=== PATIENT | male | born 1940 | race Caucasian/White ===

== ENCOUNTER 2018-07-03 13:07 | Day surgery (SDC) | payer MEDICARE, OTHER ==
[~2018-07-03] VITALS: Ht 162.6 cm; Wt 63.5 kg
[~2018-07-03 13:07] MED LIST: ASPI-630 PO; LISI10TA2 PO; METF10007 PO
[2018-07-03] MEDS ORDERED: RED600TA PO (13:51)
[2018-07-03] MEDS ORDERED: UBID100C26 PO (13:51)
[2018-07-03] MEDS ORDERED: IV RINGERS,LACTATED 1000ML 1,000 ML IV SCH ×2 (14:00→18:03)
[2018-07-03] MEDS ORDERED: fentaNYL PF VIAL 100 MCG/2 ML VIAL ONE ×2 (14:44→16:51)
[2018-07-03] MEDS ORDERED: SEVOFLURANE > 120 MINUTES. IH ONE (14:44)
[2018-07-03] MEDS ORDERED: PROPOFOL 20 ML IV ONE (14:45)
[2018-07-03] MEDS ORDERED: GLYCOPYRROLATE 1 MG/5 ML VIAL. ONE (14:45)
[2018-07-03] MEDS ORDERED: ROCURONIUM 50 MG/5 ML VIAL. ONE (14:45)
[2018-07-03] MEDS ORDERED: DEXAMETHASONE SOD PHOS 20 MG/5 ML VIAL. ONE (14:45)
[2018-07-03] MEDS ORDERED: ONDANSETRON PF 4 MG/2 ML VIAL. ONE (14:45)
[2018-07-03] MEDS ORDERED: LIDOCAINE 2% PF Vial for OR 5 ML VIAL. ONE (14:45)
[2018-07-03] MEDS ORDERED: NEOSTIGMINE METHYLSULFATE 5 MG/5 ML SYRINGE. ONE (14:45)
--- NOTE | 2018-07-03 17:29 | PDOC4 ---
OPERATIVE NOTE Date: Date: Jul 03, 2018 Pre-Op Diagnosis: BPH with obstruction. bladder stones Post-Op Diagnosis: same Procedure Performed: cystoscopy, greenlight laser of prostate. removal of bladder stones Surgeon: Solomon Lomax MD Anesthesia Type: general Blood Loss: 0 Specimans Obtained: bladder stones Findings: bladder stones. lateral lobe prostate obstruction Complications: none Operative Note: see dictation SOLOMON LOMAX MD Jul 03, 2018 17:29
--- NOTE | 2018-07-03 17:33 | DISCH ---
DISCHARGE INSTRUCTIONS Condition on Discharge Condition on Discharge: Stable Activity After Discharge Activity Instructions for Disc: Avoid exertion Lifting Instructions after Dis: No heavy lifting Exercise Instruction after Dis: Walk 15 min, 3 x per day Driving Instructions after Dis: Do not drive today Diet after Discharge Diet after Discharge: Regular Contacting the after DC Call your doctor for: Concerns you may have Follow-Up Follow up with: Dr. Lomax 07/07/18 for catheter removal SOLOMON LOMAX MD Jul 03, 2018 17:33
[2018-07-03] MEDS ORDERED: HYDR-3164 PO (17:36)
--- NOTE | 2018-07-03 18:04 | OP ---
DATE OF SURGERY: 07/03/2018 SURGEON: Solomon Lomax MD SUPER[employer]ENDENT [employer]OM[employer]IVE: None. PREOPERATIVE DIAGNOSES: 1. Benign prostatic hypertrophy with obstruction. 2. Bladder stones. POSTOPERATIVE DIAGNOSES: 1. Benign prostatic hypertrophy with obstruction. 2. Bladder stones. PROCEDURES PERFORMED: 1. Cystoscopy with GreenLight laser vaporization of the prostate. 2. Cystoscopy with extraction of bladder stones. ANESTHESIA TYPE: General. INDICATIONS: This is a 78-year-old male with bothersome prostate enlargement. He was found to have a large prostate and bladder stones on cystoscopy in the office. After discussion of risks, benefits and alternatives, he agreed to the above procedure. Informed consent was obtained. DESCRIPTION OF PROCEDURE: The patient was taken to the operating room where general anesthesia was induced. He was placed in dorsal lithotomy position and sterilely prepped and draped. A timeout was performed. A rigid cystoscope was advanced through the urethra and into the bladder. The urethra appeared normal other than prostatic obstruction from lateral lobe enlargement. Within the bladder, there were 4 small stones, which were grasped and removed intact and sent as a specimen. Both ureteral orifices were identified. The prostate was then vaporized, starting at the bladder neck and proceeding back towards the apex of the prostate. A total of 325,000 joules of energy was used. Care was taken to not injure the ureteral orifices or transmit energy distal to the veru. Hemostasis was excellent throughout the procedure. An 18-[place] Allen catheter was placed and then irrigated with return of clear fluid. A catheter bag was attached. The patient was then awakened and taken to the recovery room in stable condition. BLOOD LOSS: None. COMPLICATIONS: None. SPECIMEN: Bladder stones. SOLOMON LOMAX MD DR: NIKOLAY/cathi JOB#: [id number] / [id number]
[2018-07-03] MEDS ORDERED: MORPHINE SULFATE 2 MG/ML VIAL. IV PRN (18:15)
[2018-07-03] MEDS ORDERED: HYDROmorphone 2 MG/ML VIAL IV PRN (18:15)
[2018-07-03] MEDS ORDERED: fentaNYL PF VIAL 100 MCG/2 ML VIAL IV PRN ×2 (18:15)
[2018-07-03] MEDS ORDERED: LIDOCAINE 1% PF 2 ML VIAL. ID PRN (18:15)
[2018-07-03] MEDS ORDERED: PROCHLORPERAZINE 10 MG/2 ML VIAL. IV PRN (18:15)
[2018-07-03] MEDS ORDERED: ONDANSETRON PF 4 MG/2 ML VIAL. IV PRN (18:15)
[2018-07-03 18:21] VITALS: BP 163/88
[2018-07-03] MEDS ORDERED: INSULIN LISPRO 100 UNIT/ML 3ML VIAL. SQ ONE (19:15)
--- NOTE | 2018-08-06 09:45 | OP ---
DATE OF SURGERY: 07/03/2018 ADDENDUM The 4 bladder stones removed were all approximately 8 mm in size. SOLOMON LOMAX MD DR: NIKOLAY/cathi JOB#: [id number] / [id number]
== END 2018-07-03 19:12 | disposition home or self-care (01) ==
LOC: SURG 13:07
PROVIDERS: ATTEND Urology
DX: N40.1 Benign prostatic hyperplasia with lower urinary tract symptoms (principal); N13.8 Other obstructive and reflux uropathy; N21.0 Calculus in bladder; I10 Essential (primary) hypertension; E11.9 Type 2 diabetes mellitus without complications; Z82.49 Family history of ischemic heart disease and other diseases of the circulatory system; Z84.1 Family history of disorders of kidney and ureter; Z79.899 Other long term (current) drug therapy; Z98.890 Other specified postprocedural states; Z98.42 Cataract extraction status, left eye; Z98.41 Cataract extraction status, right eye; Z96.1 Presence of intraocular lens; Z79.84 Long term (current) use of oral hypoglycemic drugs
CPT/HCPCS: 52648; 82365; 82962; A7015; J0690; J1100; J2001; J2405; J2704; J3010; J7120; J2710; J3490